=== PATIENT | male | born 2005 | race Two or more races ===

== ENCOUNTER 2023-03-25 21:55 | Emergency (ER) | payer BC, SELFPAY ==
[2023-03-25 22:00] VITALS: BP 121/72; PULSE 79; RESP 18; TEMP 37; O2SAT 98
--- NOTE | 2023-03-26 | ED.EYEPROB ---
HPI - Eye Problem General Chief complaint: Eye Problems Stated complaint: L eye swelling Time Seen by Provider: 03/25/23 23:20 History of Present Illness HPI Narrative: 18-year-old male reports for evaluation for edema surrounding his left eye since today. Patient states couple days ago, he noticed a bump over his left anabaptism. States he messed with it today and then later developed swelling around the area extending into his left eyelid. Reports tenderness overlying the lump. He reports blurred vision secondary to the edema to his eyelid. He denies foreign body sensation, eye erythema or drainage, diplopia or loss of vision, pain with EOMs, fever, vomiting. Related Data Allergies Allergy/AdvReac Type Severity Reaction Status Date / Time No Known Allergies Allergy Mild Verified 02/25/12 17:29 Review of Systems Review of Systems: CONSTITUTIONAL: Denies fever, chills EYES: See HPI ENT: Denies rhinorrhea, congestion, sore throat, or otalgia. CARDIOVASCULAR: Denies chest pain, palpitations, or edema. RESPIRATORY: Denies cough or dyspnea. GASTROINTESTINAL: Denies abdominal pain, nausea, vomiting, or diarrhea. GENITOURINARY: Denies dysuria or hematuria. SKIN: See HPI MUSCULOSKELETAL: Denies back pain, joint pain, or myalgia. NEUROLOGIC: Denies headache, numbness, dizziness, or weakness. PSYCHIATRIC: Denies anxiety or depression. Exam Narrative: GENERAL: Well-appearing, in no acute distress. Patient resting abdomen exam bed. He is pleasant and conversational. HEAD: Normocephalic EYES: PERRLA, EOMI. No chemosis or proptosis. No conjunctivitis or erythematous globe, no drainage. 1 centimeter area of fluctuance overlying the left anabaptism with surrounding edema and erythema with edema extending into the left upper eyelid. No tenderness to the eyelid. No hordeolum or abnormality to lid. No bullae, pain out of proportion, or crepitus. ENT: Nares clear. Mucous membranes moist. Oropharynx without tonsillar hypertrophy exudate or other lesions. NECK: Supple. CHEST: No respiratory distress. Clear to auscultation, no adventitious breath sounds. HEART: Regular rate and rhythm. No murmur heard. Normal peripheral pulses. EXTREMITIES: Normal range of motion. No edema. SKIN: 1 cm area of fluctuance overlying the left anabaptism with erythema. Edema extends into the left eyelid. See eye exam. No spontaneous drainage. NEURO: No focal deficits. Alert and oriented x3. PSYCH: Normal mood and affect. Course Vital Signs Vital signs: Vital Signs Temperature 98.6 F 03/25/23 22:00 Pulse Rate 79 03/25/23 22:00 Respiratory Rate 18 03/25/23 22:00 Blood Pressure 121/72 03/25/23 22:00 Pulse Oximetry 98 03/25/23 22:00 Oxygen Delivery Room Air 03/25/23 22:00 Temperature 98.6 F 03/25/23 22:00 Pulse Rate 64 03/26/23 01:24 Respiratory Rate 18 03/26/23 01:24 Blood Pressure 120/68 03/26/23 01:24 Pulse Oximetry 98 03/26/23 01:24 Oxygen Delivery Room Air 03/25/23 22:00 Procedures Abscess I/D face: Date of Incision: 03/26/23 Time of Incision: 00:57 Local Anesthetic: lidocaine 1% Amount of anesthesia used (mL): 1 Technique: other (18 shahzad needle) Amount of fluid expressed (mL): 1 Packing used?: none I&D Results: Pus and Blood MDM - Eye Problem MDM Narrative Medical decision making narrative: 18-year-old male reports for evaluation for edema surrounding his left eye since today after he messed with a pimple to his L anabaptism. Exam significant for 1cm area of fluctuance to the L anabaptism with erythema and edema. No lymphangitic spread visible. Edema extends over the L eyelid. Edema to lid seems to be contiguous spread of soft tissue edema from nearby temporal abscess. No globe abnormalities. Post-septal cellulitis less likely given no diplopia, no loss of vision, no pain with EOMS, no fever, no proptosis, and no chemosis. Visual acuity 20/25 in each
[2023-03-26] MEDS: SULFAMETHOXAZOLE/TRIMETHOPRIM 800/160 MG DS TABLET 1 TAB PO (01:09)
[2023-03-26] MEDS: AMOXICILLIN/CLAVULANATE K 875-125 MG TAB 1 TABLET PO (01:10)
[2023-03-26 01:24] VITALS: BP 120/68; PULSE 64; RESP 18; O2SAT 98
== END 2023-03-26 00:12 | disposition home or self-care (01) ==
PROVIDERS: Emergency Provider Physician Assistant
DX: L03.211 Cellulitis of face (principal)
CPT/HCPCS: 10160; 99283; A9270

== ENCOUNTER 2023-03-29 08:49 | Emergency (ER) | payer BC, SELFPAY ==
[2023-03-29 09:20] VITALS: BP 112/59; PULSE 68; RESP 18; TEMP 36.7; O2SAT 99
--- NOTE | 2023-03-29 09:38 | ED.SKABFB ---
HPI - Skin/Abscess/Foreign Bdy General Chief complaint: Skin/Abscess/Foreign Body Stated complaint: knot on face Time Seen by Provider: 03/29/23 09:25 Source: patient, RN notes reviewed and old records reviewed Mode of arrival: ambulatory Limitations: no limitations History of Present Illness HPI narrative: Patient presents today complaining of an abscess to his left orthodox. He was initially seen on 03/26/2023 at [facility] ER, where the abscess was drained and patient was placed on course of Augmentin and Bactrim. Patient states he did not follow-up as recommended, but came here today as he states he still has a bump there and believes it still has material to be drained. Patient states the swelling around his eye and redness has since resolved once starting the antibiotics. Related Data Allergies Allergy/AdvReac Type Severity Reaction Status Date / Time No Known Allergies Allergy Mild Verified 03/29/23 09:28 Review of Systems Review of Systems: CONSTITUTIONAL: Denies body aches, fever, chills, or sweats. EYES: Denies visual changes, redness, or discharge. ENT: Denies rhinorrhea, congestion, sore throat, or otalgia. CARDIOVASCULAR: Denies chest pain, palpitations, or edema. RESPIRATORY: Denies cough or dyspnea. GASTROINTESTINAL: Denies abdominal pain, nausea, vomiting, or diarrhea. GENITOURINARY: Denies dysuria or hematuria. SKIN: + bump to left orthodox MUSCULOSKELETAL: Denies back pain, joint pain, or myalgia. NEUROLOGIC: Denies headache, numbness, tingling, or weakness. PSYCH: Denies depression or anxiety. PMFSH Comments At time of signature, I have reviewed and agree with nursing past medical, surgical, social and family history unless otherwise noted. Please see nursing chart for further information. There is no relevant family history pertinent to the presenting complaint Exam Narrative: GENERAL: Well-appearing, well-nourished, and in no acute distress. HEAD: Normocephalic, atraumatic. EYES: EOMI. PERRL. No redness or drainage. Conjunctivae normal. ENT: Mucous membranes pink and moist. NECK: Normal AROM. CHEST: No respiratory distress. EXTREMITIES: Normal range of motion. No edema. SKIN: Warm, dry, no rash. Capillary refill normal. Normal skin turgor. Approximately 1.5 cm somewhat firm nodule to the left orthodox. It is not really fluctuant in the center. There is no erythema. The nodule is skin colored. There is no surrounding induration. There is no surrounding edema. See procedure note NEURO: No focal deficits. Alert and oriented x3. Gait steady. PSYCH: Normal affect. No signs of depression or anxiety. Course Course Level of Care: Express Care Visit Vital Signs Vital signs: Vital Signs Temperature 98.1 F 03/29/23 09:20 Pulse Rate 68 03/29/23 09:20 Respiratory Rate 18 03/29/23 09:20 Blood Pressure 112/59 L 03/29/23 09:20 Pulse Oximetry 99 03/29/23 09:20 Oxygen Delivery Room Air 03/29/23 09:20 Temperature 98.1 F 03/29/23 09:20 Pulse Rate 68 03/29/23 09:20 Respiratory Rate 18 03/29/23 09:20 Blood Pressure 112/59 L 03/29/23 09:20 Pulse Oximetry 99 03/29/23 09:20 Oxygen Delivery Room Air 03/29/23 09:20 Reviewed Procedures Abscess I/D face: Date of Incision: 03/29/23 Time of Incision: 09:42 Side (if applicable): left Local Anesthetic: none Technique: other (22 gauge needle) Amount of fluid expressed (mL): 0 Abcess I&D Additional Comments: 22 gauge needle used to Tj the area. No material expressed. MDM - Skin/Abscess/Foreign Bdy MDM Narrative Medical decision making narrative: 22 gauge needle used to express any remaining material from the abscess. There is none remaining. Discussed with patient that it seems that his abscess is continuing to heal and that this lump that he continues to have is likely some scar tissue that will resolve with time, especially since there is no surr
== END 2023-03-29 10:00 | disposition home or self-care (01) ==
PROVIDERS: Emergency Provider Nurse Practitioner
DX: L02.01 Cutaneous abscess of face (principal); J45.909 Unspecified asthma, uncomplicated
CPT/HCPCS: 10060; 99212; G0463

== ENCOUNTER 2023-06-14 00:03 | Emergency (ER) | payer BC, SELFPAY ==
[2023-06-14] VITALS (8 sets, daily range): BP systolic 89–145; BP diastolic 38–76; PULSE 64–65; RESP 14; TEMP 37; O2SAT 99
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
[2023-06-14] MEDS: KETOROLAC 30 MG/ML VIAL (*BKC) IM (01:14)
== END 2023-06-14 03:40 | disposition home or self-care (01) ==
PROVIDERS: Emergency Provider Physician Assistant
DX: S01.81XA Laceration without foreign body of other part of head, initial encounter (principal); F17.290 Nicotine dependence, other tobacco product, uncomplicated; W45.8XXA Other foreign body or object entering through skin, initial encounter
CPT/HCPCS: 70486; 96372; 99284; J1885

== ENCOUNTER 2023-06-23 17:44 | Emergency (ER) | payer BC, SELFPAY ==
[2023-06-23 17:47] VITALS: BP 127/77; PULSE 89; RESP 20; TEMP 36.6; O2SAT 98
[2023-06-23 18:26] LABS: Strep Group A RT-PCR NOT DETECTED (Negative)
[2023-06-23 18:37] LABS: Influenza A QL RT-PCR Negative (Negative); Influenza B QL RT-PCR Negative (Negative); RSV RNA, RT-PCR Negative (Negative); SARS-CoV-2 RNA PCR Negative (Negative)
[2023-06-23 18:49] VITALS: BP 130/81; PULSE 61; RESP 16; TEMP 37.1; O2SAT 99
--- NOTE | 2023-06-23 19:07 | PC.NURSE ---
Assumed care of pt from PITA Benedict at this time.
--- NOTE | 2023-06-23 20:12 | ED.URI ---
HPI - URI/Sore Throat General Chief Complaint: Upper Respiratory Infection Stated Complaint: headache/cough Time Seen by Provider: 06/23/23 19:17 History of Present Illness HPI Narrative: 18 y/o M reports for evaluation for a productive cough, sore throat , nasal congestion and generalized weakness for 2 days. Pt states he works at [employer] and while lifting boxes, he feels weak and lightheaded. He denies chest pain, dyspnea, syncope, fever, abdominal pain, n/v, urinary complaints, otalgia. He does reports 2 episodes of diarrhea today. Related Data Allergies Allergy/AdvReac Type Severity Reaction Status Date / Time No Known Allergies Allergy Mild Verified 06/23/23 18:54 Review of Systems Review of Systems: CONSTITUTIONAL: Denies fever, chills, or sweats. EYES: Denies visual changes, redness, or discharge. ENT: see HPI CARDIOVASCULAR: Denies chest pain, palpitations, or edema. RESPIRATORY: see HPI GASTROINTESTINAL: Denies abdominal pain, nausea, vomiting, or diarrhea. GENITOURINARY: Denies dysuria or hematuria. SKIN: Denies rash or itching. MUSCULOSKELETAL: Denies back pain, joint pain, or myalgia. NEUROLOGIC: Denies headache, numbness, or weakness. PSYCHIATRIC: Denies anxiety or depression. [facility] Family History Family History Father Asthma Social History Social History Smoking status: Current every day smoker Tobacco type: e-cigarettes/vaping Alcohol intake: never Substance use: never Lack of Transportation: No Lack of Food: Never True Current Housing: I Have Housing Concerned About Future Housing: No Difficulty Paying Gas/Electric Bills: No Difficulty Paying for Meds: No Currently Unemployed: No Education: High School Diploma/GED Difficulty w/ Childcare or Family Care: No Occupation/Education: occupation Additional occupation/education comments: [employer] Exam Narrative: GENERAL: Well-appearing, well-nourished, and in no acute distress. patient resting comfortably in exam bed. He is pleasant and conversational. HEAD: Normocephalic, atraumatic. EYES: PERRLA and EOMI. ENT: Nares clear, no rhinorrhea or epistaxis. Mucous membranes moist. Posterior pharynx without erythema. No tonsillar hypertrophy. Uvula is midline. No tonsillar exudates. Bilateral TMs are lao nonbulging. Normal canals. NECK: Supple. CHEST: Clear to auscultation. No respiratory distress. HEART: Regular rate and rhythm. No murmur heard. Normal peripheral pulses. ABDOMEN: Soft, nontender, nondistended, normal active bowel sounds. No CVA tenderness. EXTREMITIES: Normal range of motion. No edema. SKIN: Warm, dry, no rash. NEURO: No focal deficits. Alert and oriented x3 Course Vital Signs Vital signs: Vital Signs Temperature 97.8 F 06/23/23 17:47 Pulse Rate 89 06/23/23 17:47 Respiratory Rate 20 06/23/23 17:47 Blood Pressure 127/77 06/23/23 17:47 Pulse Oximetry 98 06/23/23 17:47 Oxygen Delivery Room Air 06/23/23 17:47 Temperature 98.8 F 06/23/23 18:49 Pulse Rate 61 06/23/23 18:49 Respiratory Rate 16 06/23/23 18:49 Blood Pressure 130/81 06/23/23 18:49 Pulse Oximetry 99 06/23/23 18:49 Oxygen Delivery Room Air 06/23/23 18:49 MDM - URI/Sore Throat MDM Narrative Medical decision making narrative: 18-year-old male reports for evaluation for sore throat, productive cough, nasal congestion and generalized weakness for 2 days. See HPI for further history. His vitals are stable he is afebrile. He is well appearing on exam. Lung sounds clear. No signs or symptoms of RESEARCH PROJECT COORDINATOR. COVID, flu and RSV are negative. Strep negative. I did offer to obtain blood work, EKG chest x-ray given symptoms of lightheadedness and generalized weakness with diarrhea. Patient declined and states he would like a work note. Workup provided. Will send b
== END 2023-06-23 20:30 | disposition home or self-care (01) ==
PROVIDERS: Emergency Medicine; Emergency Provider Physician Assistant
DX: J06.9 Acute upper respiratory infection, unspecified (principal); B34.9 Viral infection, unspecified; F17.290 Nicotine dependence, other tobacco product, uncomplicated
CPT/HCPCS: 87637; 87651; 99283

== ENCOUNTER 2023-06-25 22:42 | Emergency (ER) | payer BC, SELFPAY ==
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
[2023-06-25 22:43] VITALS: BP 124/81; PULSE 79; RESP 16; TEMP 36.3; O2SAT 100
[2023-06-25] MEDS: TETANUS,DIPHTHERIA,AC PERTUSSIS ADULT (0.5 ML) BOOSTRIX IM (23:38)
[2023-06-26] MEDS: HYDROcodone/acetaminophen (*CRX) 5-325 MG TABLET 1 TAB PO (00:33)
[2023-06-26] MEDS: KETOROLAC (*BKC) 60 MG/2 ML VIAL IM (00:33)
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
[2023-06-26 02:33] VITALS: BP 116/69; PULSE 74; RESP 16; O2SAT 100
== END 2023-06-26 02:35 | disposition home or self-care (01) ==
PROVIDERS: Emergency Provider Physician Assistant; PCP Family Medicine
DX: S61.411A Laceration without foreign body of right hand, initial encounter (principal); F17.290 Nicotine dependence, other tobacco product, uncomplicated; Z23 Encounter for immunization; W26.0XXA Contact with knife, initial encounter
CPT/HCPCS: 12002; 73130; 90471; 90715; 96372; 99283; A9270; J1885

== ENCOUNTER 2024-04-11 18:45 | Emergency (ER) | payer SELFPAY ==
[2024-04-11 19:27] VITALS: BP 140/72; PULSE 73; RESP 18; TEMP 37; O2SAT 99
--- NOTE | 2024-04-11 19:49 | ED.URI ---
HPI - URI/Sore Throat General Chief Complaint: Upper Respiratory Infection Stated Complaint: Coughing/ congestion/ vomting Time Seen by Provider: 04/11/24 19:51 Source: patient, RN notes reviewed and old records reviewed Mode of arrival: ambulatory Limitations: no limitations History of Present Illness HPI Narrative: patient presents with complaints of runny nose, fever, sneezing and body aches for 2-3 days. He has been taking Tylenol for his symptoms intermittently. He is not in any distress. He denies any shortness of breath. He voices no other concerns or complaints at this time. Related Data Allergies Allergy/AdvReac Type Severity Reaction Status Date / Time No Known Allergies Allergy Mild Verified 07/08/23 15:33 Review of Systems Review of Systems: All systems reviewed & are unremarkable except as noted in HPI and below Constitutional: Constitutional: Reports as per HPI, Reports no additional constitutional complaints and Reports fever(s) ENT: Reports system reviewed and no additional complaints, except as documented, Reports nasal discharge and Reports sore throat Cardiovascular: Cardiovascular: Reports no additional cardiovascular complaints Respiratory: Respiratory: Reports no additional respiratory complaints Gastrointestinal: Gastrointestinal: Reports no additional gastrointestinal complaints [facility] Family History Family History Father Asthma Social History Social History Smoking status: Current every day smoker Tobacco type: e-cigarettes/vaping Alcohol intake: never Substance use: never Lack of Transportation: No Lack of Food: Never True Current Housing: I Have Housing Concerned About Future Housing: No Difficulty Paying Gas/Electric Bills: No Difficulty Paying for Meds: No Currently Unemployed: No Education: High School Diploma/GED Difficulty w/ Childcare or Family Care: No Occupation/Education: occupation Additional occupation/education comments: [employer] Comments At the time of my signature, I reviewed and agree with the nursing past medical, surgical, social, and family history. There is no relevant family history pertinent to the patient complaint. Exam Const: General: cooperative, no acute distress, alert and awake Orientation/consciousness: oriented to person, oriented to place and oriented to time HENMT: Head: normal to inspection Ears: TM's normal bilaterally Face/Nose/Sinus: Nasal discharge present clear Mouth: Yes moist mucous membranes Throat: posterior oropharynx abnormal erythema Resp: Effort & Inspection: normal respiratory effort and able to speak in complete sentences Auscultation: clear to auscultation bilaterally, no crackles, no rales, no rhonchi and no wheezes Cardio: Palpation: normal PMI Rate: regular rate Rhythm: regular rhythm Heart sounds: S1 normal heart sound present and S2 normal heart sound present Neuro: General: oriented to person, oriented to place and oriented to time Cranial nerves: Yes CN's II-XII intact bilaterally Psych: Appearance: grossly normal Thought process: Normal thought process present Insight: Good insight present (Psych) Judgement: Good judgement present (Psych) Course Course Level of Care: Express Care Visit Vital Signs Vital signs: Vital Signs Temperature 98.6 F 04/11/24 19:27 Pulse Rate 73 04/11/24 19:27 Respiratory Rate 18 04/11/24 19:27 Blood Pressure 140/72 04/11/24 19:27 Pulse Oximetry 99 04/11/24 19:27 Oxygen Delivery Room Air 04/11/24 19:27 Temperature 98.6 F 04/11/24 19:27 Pulse Rate 73 04/11/24 19:27 Respiratory Rate 18 04/11/24 19:27 Blood Pressure 140/72 04/11/24 19:27 Pulse Oximetry 99 04/11/24 19:27 Oxygen Delivery Room Air 04/11/24 19:27 Reviewed MDM - URI/Sore Throat MDM Narrative Medical decision making narrati
[2024-04-11 20:13] LABS: EDCOVIDSCREEN Negative (Negative); EDINFLUASCREEN Negative (Negative); EDINFLUBSCREEN Negative (Negative); EDSTREPNEGPOS1 Negative (Negative)
== END 2024-04-11 20:18 | disposition home or self-care (01) ==
PROVIDERS: Emergency Provider Nurse Practitioner Family
DX: J06.9 Acute upper respiratory infection, unspecified (principal); Z20.822 Contact with and (suspected) exposure to COVID-19; F17.290 Nicotine dependence, other tobacco product, uncomplicated
CPT/HCPCS: 87081; 87635; 87804; 87880; 99213; G0463